=== PATIENT | male | born 1975 | race Caucasian/White ===

== ENCOUNTER → 2016-05-04 | Day surgery (SDC) | payer OTHER ==
[2016-05-03 13:40] VITALS: BMI 30.7
[~2016-05-04] MED LIST: ACETAMINOPHEN 1000 MG/100 ML VIAL (NON FORMULARY) IVPB ONE; ACETAMINOPHEN INJECTION 100 ML IVPB ONE; BACITRACIN 30 GM TUBE TOPICAL OINTMENT ONE; DEXAMETHASONE SOD PHOSPHATE 4 MG/1 ML VIAL ONE; DEXTROSE 5%-0.45% SALINE 1,000 ML IV SCH; KETOROLAC TROMETHAMINE 30 MG/1 ML VIAL ONE; LACTATED RINGERS SOLUTION 1,000 ML IV SCH; LIDOCAINE HCL 1%, 10 MG/ML (20ML VIAL) IJ ONE; LIDOCAINE HCL 1%, 10 MG/ML (20ML VIAL) ONE; LIDOCAINE HCL/PF 2% SDV 5ML VIAL ONE; MIDAZOLAM HCL 2 MG/2 ML SINGLE DOSE VIAL ONE; MINERAL OIL/PETROLATUM,WHITE 3.5 GM TUBE ONE; ONDANSETRON 4 MG/2 ML VIAL IVPUSH PRN; ONDANSETRON 4 MG/2 ML VIAL ONE; PROPOFOL 20 ML ONE; SUCCINYLCHOLINE CHLORIDE 200 MG/10 ML VIAL ONE; ceFAZolin SODIUM 1 GM VIAL IVPB ONE; ceFAZolin SODIUM 1 GM VIAL ONE; traMADol HCL 50 MG TABLET ONE
--- NOTE | 2016-05-04 09:20 | OP ---
Operative Note - Note: Operative Date: 05/04/16 Pre-Operative Diagnosis: left spermatocele Operation: left spermatocelectomy Findings: left spermatocele Post-Operative Diagnosis: Same as Pre-op Surgeon: Evgeny Almaraz Anesthesia: General Specimens Removed: spermatocele sac Estimated Blood Loss (mls): 2 Operative Report Dictated: Yes
--- NOTE | 2016-05-04 10:45 | OP ---
DATE OF OPERATION: PREOPERATIVE DIAGNOSIS: Left spermatocele. POSTOPERATIVE DIAGNOSIS: Left spermatocele. PROCEDURE: Left spermatocelectomy. SURGEON: Alyssa Joy MD INDICATIONS: The patient is a 40-year-old male with a symptomatic 3-cm left spermatocele who elected to undergo spermatocelectomy. Understood the risks of bleeding, infection, recurrence of spermatocele, potential for persistent pain because the pain may not be due to the spermatocele, risk of recurrence, potential injury to the epididymitis, and potential need for additional procedures. DESCRIPTION OF PROCEDURE: After informed consent was obtained, the patient was taken to the OR and placed supine on the operating room table. After cardiac monitoring was administered, general anesthesia was established. The penis and scrotum were prepped and draped in a standard sterile fashion. A 3-cm left spermatocele was palpable below the scrotal skin. An approximately 2-cm incision was created overlying the spermatocele with a 15 blade. The Dartos muscle was incised and then tunica vaginalis was incised. At this point, the spermatocele was visualized. It was dissected free from the epididymis. The came to a connection with the epididymis at which point it was amputated and ligated and sutured with a 3-0 Vicryl tie. The spermatocele sac was then sent to Pathology for analysis. No other spermatocele was noted. The testicle was placed in its normal anatomic position. The Dartos and tunica vaginalis were closed with an interrupted 3-0 chromic suture, and the skin was closed with interrupted 3-0 chromic suture as well. Dry sterile dressing and scrotal support was then placed. The patient was awoken from anesthesia and transferred to the recovery room in stable condition. There were no complications. Estimated blood loss was minimal. ALYSSA JOY M.D. [id number]
[2016-05-04 11:45] VITALS: TEMP 98.4
[2016-05-04 13:26] VITALS: BP 127/66; PULSE 87
== END | disposition home or self-care (01) ==
LOC: JASU-SURG 06:33
PROVIDERS: ATTEND Urology
PROC: 0VBK0ZZ Excision of Left Epididymis, Open Approach (ICD-10-PCS; principal; 2016-05-04 08:00)
DX: N43.40 Spermatocele of epididymis, unspecified (principal)
CPT/HCPCS: 88304-TC; 94760

== ENCOUNTER 2017-09-19 17:33 | Emergency (ER) | payer OTHER ==
[2017-09-19 17:43] VITALS: BP 159/93; PULSE 96; TEMP 98; BMI 29.2
--- NOTE | 2017-09-19 17:43 | PDOC ---
Rapid Medical Evaluation Chief Complaint: Lightheaded Time Seen by Provider: 09/19/17 17:41 Medical Evaluation: Allergies Allergy/AdvReac Type Severity Reaction Status Date / Time oxycodone Allergy Intermediate Itching Verified 09/19/17 17:38 tree nut Allergy Mild Itching Verified 09/19/17 17:38 APPLES/PEARS Allergy Uncoded 09/19/17 17:38 I have performed a brief in-person evaluation of this patient. The patient presents with a chief complaint of: weak and dizzy after work today Pertinent physical exam findings: none I have ordered the following: labs, EKG The patient will proceed to the ED for further evaluation. Discharge Disposition - Diagnosis Dizziness - Referrals - Patient Instructions - Post Discharge Activity
[2017-09-19 18:18] LABS: BASO % 0.5 % (0-2.0); EOS % 4.6 % (0-4.5); HEMATOCRIT 45.3 % (35.4-49); HEMOGLOBIN 15.7 GM/dL (11.7-16.9); LYMPH % 29.7 % (8-40); MCH 31.1 pg (25.7-33.7); MCHC 34.7 g/dl (32.0-35.9); MEAN CELL VOLUME 89.5 fl (80-96); MEAN PLT VOLUME 9.2 fl (7.5-11.1); MONO % 9.4 % (3.8-10.2); NEUT % 55.8 % (42.8-82.8); PLATELET COUNT 214 K/MM3 (134-434); RBC 5.06 M/mm3 (4.00-5.60)
[2017-09-19 18:54] LABS: ANION GAP 7 (8-16); BLOOD UREA NITROGEN 19 mg/dL (7-18); CALCIUM 8.5 mg/dL (8.5-10.1); CHLORIDE 105 mmol/L (98-107); CO2 27 mmol/L (21-32); CREATININE 1.3 mg/dL (0.7-1.3); GLUCOSE,RANDOM 114 mg/dL (74-106); POTASSIUM 3.7 mmol/L (3.5-5.1); SGOT/AST 21 U/L (15-37); SGPT/ALT 36 U/L (12-78); SODIUM 139 mmol/L (136-145)
[2017-09-19 18:59] LABS: ALK PHOS 66 U/L (45-117); BILIRUBIN,TOTAL 0.6 mg/dL (0.2-1.0); TOT PROT 7.6 g/dl (6.4-8.2)
--- NOTE | 2017-09-19 21:27 | PDOC ---
History of Present Illness - General History Source: Patient, Old Records Exam Limitations: No Limitations (The patient is a 41 year old male with no significant past medical history who presents to the emergency department with lightheadedness today. The patient states that he was lying in bed when his symptoms began. He reports that he felt like he had to pass out while lying down. He reports that he drank a few cups of water and he symptoms have mostly subsided. He reports associated nausea and dry mouth, He denies chest pain, shortness of breath, sick contacts. He reports that he does not drink, smoke, or do drugs. ) - History of Present Illness Initial Comments: 09/19/17 21:34 The patient is a 41 year old male with no significant past medical history who presents to the emergency department with lightheadedness today. The patient states that he was lying in bed when his symptoms began. He reports that he felt like he had to pass out while lying down. He reports that he drank a few cups of water and he symptoms have mostly subsided. He reports associated nausea and dry mouth, He denies chest pain, shortness of breath, sick contacts. He reports that he does not drink, smoke, or do drugs. <Sachin Earl - Last Filed: 09/19/17 21:34> - General History Source: Patient <VincentPascual hung - Last Filed: 09/19/17 21:38> - General Chief Complaint: Lightheaded Stated Complaint: FATIGUE Time Seen by Provider: 09/19/17 17:41 Past History <Sachin Earl - Last Filed: 09/19/17 21:34> - Past Medical History Anemia: No Asthma: No Cancer: No Cardiac Disorders: No CVA: No COPD: No CHF: No Dementia: No Diabetes: No GI Disorders: No Disorders: No HTN: Yes (recent high b/p) Hypercholesterolemia: No Liver Disease: No Seizures: No Thyroid Disease: No - Immunization History Td Vaccination: Yes Immunization Up to Date: Yes - Suicide/Smoking/Psychosocial Hx Smoking Status: No Smoking History: Never smoked Have you smoked in the past 12 months: No Number of Cigarettes Smoked Daily: 0 Information on smoking cessation initiated: No Hx Alcohol Use: No Drug/Substance Use Hx: No Substance Use Type: None <Pascual Farah - Last Filed: 09/19/17 21:38> - Past Medical History Allergies/Adverse Reactions: Allergies Allergy/AdvReac Type Severity Reaction Status Date / Time oxycodone Allergy Intermediate Itching Verified 09/19/17 17:38 tree nut Allergy Mild Itching Verified 09/19/17 17:38 APPLES/PEARS Allergy Uncoded 09/19/17 17:38 Home Medications: Ambulatory Orders Clindamycin HCl 300 mg PO TID #15 capsule 09/16/17 Ketorolac Tromethamine [Toradol] 10 mg PO TID PRN #20 tablet 09/16/17 Review of Systems - Review of Systems Able to Perform ROS?: Yes Comments:: 09/19/17 21:34 CONSTITUTIONAL: Absent: fever, no chills, no fatigue EYES: Absent: visual changes ENT: (+) Dry mucus membranes Absent: ear pain, no sore throat CARDIOVASCULAR: Absent: chest pain, no palpitations RESPIRATORY: Absent: cough, no SOB GI: Absent: abdominal pain, no nausea, no vomiting, no constipation, no diarrhea GENITOURINARY: Absent: dysuria, no frequency, no hematuria MUSCULOSKELETAL: Absent: back pain, no arthralgia, no myalgia SKIN: Absent: rash NEURO: (+) Lightheadedness, nausea. <Sachin Earl - Last Filed: 09/19/17 21:34> *Physical Exam - Vital Signs Last Vital Signs Temp Pulse Resp BP Pulse Ox 98.0 F 96 H 18 159/93 100 09/19/17 17:40 09/19/17 17:40 09/19/17 17:40 09/19/17 17:40 09/19/17 17:40 - Physical Exam Comments: 09/19/17 21:34 GENERAL: Well-appearing, well-nourished. No apparent distress. HEENT: Normocephalic, atraumatic. PERRL, EOM intact. CARDIOVASCULAR: Normal S1, S2. Regular rate and rhythm. PULMONARY: Clear to auscultation bilaterally. ABDOMEN: Soft, non-distended, non-tender. EXTREMITIES: Normal ROM in all four extremities. No gross deformities. SKIN: Warm, dry. No rash NEUROLOGICAL: No focal neurological deficits. <Sachin Earl - Last Filed: 09/19/17 21:34> - Vital Signs Last Vital Signs Temp Pulse Resp BP Pulse Ox 98.0 F 96 H 18 159/93 100 09/19/17 17:40 09/19/17 17:40 09/19/17 17:40 09/19/17 17:40 09/19/17 17:40 <Pascual Farah - Last Filed: 09/19/17 21:38> ED Treatment Course - LABORATORY CBC & Chemistry Diagram: 09/19/17 18:19 09/19/17 18:19 - ADDITIONAL ORDERS Additional order review: Laboratory Results 09/19/17 18:19 Sodium 139 Potassium 3.7 Chloride 105 Carbon Dioxide 27 Anion Gap 7 L BUN 19 H Creatinine 1.3 D Creat Clearance w eGFR > 60 Random Glucose 114 H D Calcium 8.5 Total Bilirubin 0.6 D AST 21 D ALT 36 Alkaline Phosphatase 66 Creatine Kinase 165 Creatine Kinase Index 0.9 CK-MB (CK-2) 1.64 Troponin I < 0.02 Total Protein 7.6 Albumin 4.0 09/19/17 18:19 RBC 5.06 MCV 89.5 MCHC 34.7 RDW 13.0 MPV 9.2 Neutrophils % 55.8 Lymphocytes % 29.7 Monocytes % 9.4 Eosinophils % 4.6 H Basophils % 0.5 <Sachin Earl - Last Filed: 09/19/17 21:34> - LABORATORY CBC & Chemistry Diagram: 09/19/17 18:19 09/19/17 18:19 - ADDITIONAL ORDERS Additional order review: Laboratory Results 09/19/17 18:19 Sodium 139 Potassium 3.7 Chloride 105 Carbon Dioxide 27 Anion Gap 7 L BUN 19 H Creatinine 1.3 D Creat Clearance w eGFR > 60 Random Glucose 114 H D Calcium 8.5 Total Bilirubin 0.6 D AST 21 D ALT 36 Alkaline Phosphatase 66 Creatine Kinase 165 Creatine Kinase Index 0.9 CK-MB (CK-2) 1.64 Troponin I < 0.02 Total Protein 7.6 Albumin 4.0 09/19/17 18:19 RBC 5.06 MCV 89.5 MCHC 34.7 RDW 13.0 MPV 9.2 Neutrophils % 55.8 Lymphocytes % 29.7 Monocytes % 9.4 Eosinophils % 4.6 H Basophils % 0.5 <Pascual Farah - Last Filed: 09/19/17 21:38> Medical Decision Making - Medical Decision Making 09/19/17 21:30 Dr. Farah: The scribe's documentation has been prepared under my direction and personally reviewed by me in its entirery. I confirm that the note above accurately reflects all work, treatment, procedures, and medical decision making performed by me. Patient's feels better after drinking in the department. Denies return of symptoms. Pt advised to follow up with with his pcp by next week for re- evaluation. <Pascual Farah - Last Filed: 09/19/17 21:38> *DC/Admit/Observation/Transfer - Attestations Scribe Attestion: 09/19/17 21:34 Documentation prepared by Sachin Earl, acting as center medical and lab director for Pascual Farah DO. <Sachin Earl - Last Filed: 09/19/17 21:34> - Discharge Dispostion Decision to Admit order: No <Pascual Farah - Last Filed: 09/19/17 21:38> Diagnosis at time of Disposition: Dizziness, Light headedness - Discharge Dispostion Disposition: HOME Condition at time of disposition: Stable - Referrals Referrals: Lisandro Alejandre [Primary Care Provider] - - Patient Instructions Printed Discharge Instructions: DI for Dizziness-Nonvertigo Additional Instructions: stay well hydrated throughout the summer. eat well and rest. Please follow up with your primary care doctor for a re-evaluation by Sunday of nest week. - Post Discharge Activity
--- NOTE | 2017-09-20 11:54 | EKG ---
Test Reason : Blood Pressure : / mmHG Vent. Rate : 083 BPM Atrial Rate : 083 BPM P-R Int : 156 ms QRS Dur : 096 ms QT Int : 380 ms P-R-T Axes : 053 028 039 degrees QTc Int : 446 ms NORMAL SINUS RHYTHM NORMAL ECG WHEN COMPARED WITH ECG OF 18-JUL-2013 19:53, NO SIGNIFICANT CHANGE WAS FOUND Confirmed by ARABELLA COHEN MD ([id number]) on 09/20/2017 11:54:05 AM Referred By: Confirmed By:ARABELLA COHEN MD
== END 2017-09-19 21:40 | disposition home or self-care (01) ==
LOC: JER 17:33
DX: R42 Dizziness and giddiness (principal); Z88.8 Allergy status to other drugs, medicaments and biological substances; Z91.018 Allergy to other foods
CPT/HCPCS: 36415; 80053; 82550; 82553; 84484; 85025; 93005; 93010; 99282-25

== ENCOUNTER 2017-12-14 12:55 | Emergency (ER) | payer OTHER ==
[2017-12-14 13:02] VITALS: BP 139/86; PULSE 89; TEMP 98.5; BMI 31.5
[2017-12-14] MEDS ORDERED: KETOROLAC TROMETHAMINE 30 MG/1 ML VIAL IM ONE (13:16)
[2017-12-14] MEDS ORDERED: KETOROLAC TROMETHAMINE 30 MG/1 ML VIAL ONE (13:24)
--- NOTE | 2017-12-14 13:39 | PDOC ---
History of Present Illness - General Chief Complaint: Pain Stated Complaint: LEFT BACK PAIN Time Seen by Provider: 12/14/17 12:57 - History of Present Illness Initial Comments: 12/14/17 13:34 42 M with no PMH presents to ED with L lower back pain x 4 days. Pt states that he initially injured his back in high school doing deadlifts. Since then, he occasionally gets lower back pain a few times a year. 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 He denies any new injuries but states that he has been having progressively worsening pain over the past 4 days. The pain is in his L lower back and radiates down his leg. It is worse with bending and lifting his leg. Pt denies any weakness/numbness in his leg. Denies saddle anesthesia or incontinence. Denies F/C. Past History - Past Medical History Allergies/Adverse Reactions: Allergies Allergy/AdvReac Type Severity Reaction Status Date / Time oxycodone Allergy Intermediate Itching Verified 12/14/17 12:56 tree nut Allergy Mild Itching Verified 12/14/17 12:56 APPLES/PEARS Allergy Mild Itching Uncoded 12/14/17 12:56 Home Medications: Ambulatory Orders Naproxen 500 mg PO BID #14 tablet 12/14/17 Anemia: No Asthma: No Cancer: No Cardiac Disorders: No CVA: No COPD: No CHF: No Dementia: No Diabetes: No GI Disorders: No Disorders: No HTN: Yes (recent high b/p) Hypercholesterolemia: No Liver Disease: No Seizures: No Thyroid Disease: No - Immunization History Td Vaccination: Yes Immunization Up to Date: Yes - Suicide/Smoking/Psychosocial Hx Smoking Status: No Smoking History: Never smoked Have you smoked in the past 12 months: No Number of Cigarettes Smoked Daily: 0 Information on smoking cessation initiated: No Hx Alcohol Use: No Drug/Substance Use Hx: No Substance Use Type: None Review of Systems - Review of Systems Comments:: 12/14/17 13:35 "GENERAL/CONSTITUTIONAL: No fever or chills. No weakness. HEAD, EYES, EARS, NOSE AND THROAT: No change in vision. No ear pain or discharge. No sore throat. CARDIOVASCULAR: No chest pain or shortness of breath. RESPIRATORY: No cough, wheezing, or hemoptysis. GASTROINTESTINAL: No nausea, vomiting, diarrhea or constipation. GENITOURINARY: No dysuria, frequency, or change in urination. MUSCULOSKELETAL: + L lower back pain SKIN: No rash NEUROLOGIC: No headache, vertigo, loss of consciousness, or change in strength/ sensation. ENDOCRINE: No increased thirst. No abnormal weight change. HEMATOLOGIC/LYMPHATIC: No anemia, easy bleeding, or history of blood clots. ALLERGIC/IMMUNOLOGIC: No hives or skin allergy. " *Physical Exam - Vital Signs Last Vital Signs Temp Pulse Resp BP Pulse Ox 98.5 F 89 16 139/86 100 12/14/17 12:55 12/14/17 12:55 12/14/17 12:55 12/14/17 12:55 12/14/17 12:55 - Physical Exam Comments: 12/14/17 13:36 "GENERAL: Awake, alert, and fully oriented, in no acute distress. HEAD: No signs of trauma EYES: PERRLA, EOMI, sclera anicteric, conjunctiva clear ENT: Auricles normal inspection, hearing grossly normal, nares patent, oropharynx clear without exudates. Moist mucosa NECK: Nontender, no stepoffs, Normal ROM, supple, no lymphadenopathy, JVD, or masses LUNGS: Breath sounds equal, clear to auscultation bilaterally. No wheezes, and no crackles HEART: Regular rate and rhythm, normal S1 and S2, no murmurs, rubs or gallops ABDOMEN: Soft, nontender, normoactive bowel sounds. No guarding, no rebound. No masses EXTREMITIES: Normal range of motion, no edema. No clubbing or cyanosis. No cords, erythema, or tenderness NEUROLOGICAL: Cranial nerves II through XII intact. 5/5 strength and sensation in all extremities, Normal speech, normal gait, normal cerebellar function SKIN: Warm, Dry, normal turgor, no rashes or lesions noted. BACK: + L paraspinal lumbar TTP, + L sided straight leg raise ED Treatment Course - Medications Given in the ED: ED Medications Discontinued Medications Generic Name Dose Route Start Last Admin Trade Name Freq PRN Reason Stop Dose Admin Ketorolac Tromethamine 30 mg 12/14/17 13:16 12/14/17 13:28 Toradol Injection - IM 12/14/17 13:17 30 mg ONCE ONE Administration Medical Decision Making - Medical Decision Making 12/14/17 13:36 42 M with L lower back pain radiating to L leg. Likely sciatic nerve pain. Pt with no neuro deficits. No evidence of cord compression/cauda equina. - Toradol - F/u ortho Pt is well appearing, with normal vitals. Clinically stable for DC at this time. I discussed the physical exam findings, ancillary test results and final diagnoses with the patient. I answered all of the patient's questions. The patient was satisfied with the care received and felt comfortable with the discharge plan and treatment plan. The patient agrees to follow up with the primary care physician within 24-72 hours. *DC/Admit/Observation/Transfer Diagnosis at time of Disposition: Lower back pain - Discharge Dispostion Disposition: HOME Condition at time of disposition: Stable - Referrals Referrals: Wu Sweet MD [Staff Physician] - - Patient Instructions Printed Discharge Instructions: DI for Sciatica Additional Instructions: Your lower back pain is likely due to your sciatic nerve. It could also be a herniated disc. Follow up with an orthopedic surgeon for further evaluation. You will likely need a MRI. Call the number provided to make an appointment within 1 week. Take one naproxen every 12 hours for pain. If you experience worsening pain, weakness or numbness in your legs, difficulty controlling your bowel or bladder, or any other concerning symptoms, return to the ER immediately. - Post Discharge Activity - Attestations Physician Attestion: 12/14/17 13:39 I, Dr. Derek Carroll MD, attest that this document has been prepared under my direction and personally reviewed by me in its entirety. I further attest, that it accurately reflects all work, treatment, procedures and medical decision -making performed by me.
== END 2017-12-14 14:03 | disposition home or self-care (01) ==
LOC: FER 12:55
PROC: 3E0233Z Introduction of Anti-inflammatory into Muscle, Percutaneous Approach (ICD-10-PCS; principal; 2017-12-14)
DX: M54.5 Low back pain (principal); I10 Essential (primary) hypertension
CPT/HCPCS: 96372; 99282-25

== ENCOUNTER 2018-04-06 22:36 | Emergency (ER) | payer OTHER ==
[2018-04-06 22:51] VITALS: BP 144/100; PULSE 90; TEMP 98.1; BMI 31.6
--- NOTE | 2018-04-06 23:01 | PDOC ---
History of Present Illness - General Chief Complaint: Pain Stated Complaint: ARM PAIN/NUMBNESS Time Seen by Provider: 04/06/18 22:44 - History of Present Illness Initial Comments: This 42-year-old man with no significant past medical history presents with a several day history of numbness of lateral aspect of the left forearm. He denies paresthesias/pain/weakness of the left arm. No history of recent trauma to the left upper extremity. He has a history of rotator cuff injury of the left shoulder 2 years ago; this resolved with conservative treatment. He denies any history of neck pain/cervical disc issues. 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 He does not recall any recent increase in strenuous activity or direct trauma to the left arm. No previous history of peripheral neuropathy or nerve compression syndromes . He states that his blood pressure has been elevated intermittently, typically in doctor's offices or preoperatively. He has never been treated for hypertension. Cardiac risk factors: Family history of coronary artery disease, otherwise no risk factors Past History - Past Medical History Allergies/Adverse Reactions: Allergies Allergy/AdvReac Type Severity Reaction Status Date / Time oxycodone Allergy Intermediate Itching Verified 12/14/17 12:56 tree nut Allergy Mild Itching Verified 12/14/17 12:56 APPLES/PEARS Allergy Mild Itching Uncoded 12/14/17 12:56 Home Medications: Ambulatory Orders NK [No Known Home Medication] 04/06/18 Anemia: No Asthma: No Cancer: No Cardiac Disorders: No CVA: No COPD: No CHF: No Dementia: No Diabetes: No GI Disorders: No Disorders: No HTN: Yes (recent high b/p) Hypercholesterolemia: No Liver Disease: No Seizures: No Thyroid Disease: No - Immunization History Td Vaccination: Yes Immunization Up to Date: Yes - Suicide/Smoking/Psychosocial Hx Smoking Status: No Smoking History: Never smoked Have you smoked in the past 12 months: No Number of Cigarettes Smoked Daily: 0 Hx Alcohol Use: No Drug/Substance Use Hx: No Substance Use Type: None Review of Systems - Review of Systems Able to Perform ROS?: Yes Comments:: 12 point review of systems is negative except for what is noted in the history of present illness *Physical Exam - Vital Signs Last Vital Signs Temp Pulse Resp BP Pulse Ox 98.1 F 90 18 144/100 98 04/06/18 22:37 04/06/18 22:37 04/06/18 22:37 04/06/18 22:37 04/06/18 22:37 - Physical Exam Comments: GENERAL: Adult male, alert and oriented 3, no acute distress HEAD: Normal with no signs of trauma. EYES: PERRLA, EOMI, sclera anicteric, conjunctiva clear. ENT: Ears normal, nares patent, oropharynx clear without exudates. Moist mucous membranes. NECK: Normal range of motion, supple without lymphadenopathy, JVD, or masses. LUNGS: Breath sounds equal, clear to auscultation bilaterally. No wheezes, and no crackles. HEART:Regular rate and rhythm, normal S1 and S2 without murmur, rub or gallop. ABDOMEN:.normal bowel sounds No guarding,tenderness or rebound.No masses No distention. EXTREMITIES: Left upper extremity mild tenderness to palpation in the antecubital fossa; decreased light touch sensation lateral aspect of the forearm No obvious weakness of elbow flexion/extension; no weakness of wrist/hand flexion or extension Radial pulse strongly palpable at wrist; distal neurovascular functioning is intact Remainder of the extremity exam is normal NEUROLOGICAL: Cranial nerves II through XII grossly intact. Normal speech. No focal neurological deficits. MUSCULOSKELETAL: Back non-tender to palpation, no CVA tenderness SKIN: Warm, Dry, normal turgor, no rashes or lesions noted. Twelve-lead electrocardiogram is performed and interpreted by me: Normal sinus rhythm at 82 bpm; axis, intervals and wave forms are all normal. No evidence of acute ST or T-wave abnormalities. No evidence of acute cardiac arrhythmia Moderate Sedation - Procedure Monitoring Vital Signs: Procedure Monitoring Vital Signs Temperature 98.1 F 04/06/18 22:37 Pulse Rate 90 04/06/18 22:37 Respiratory Rate 18 04/06/18 22:37 Blood Pressure 144/100 04/06/18 22:37 O2 Sat by Pulse Oximetry (%) 98 04/06/18 22:37 Medical Decision Making - Medical Decision Making This 42-year-old man presents with a few day history of numbness of an area of the left forearm without paresthesias/pain or weakness. No other symptoms present. Although the patient has no known trauma to the left arm, he does have risk factors for overuse/strain because of daily lifting of heavy objects during his work. Exam as noted. There is a limited area of light touch sensation decrease in the lateral aspect of the proximal left forearm. There is no obvious weakness of elbow flexion/extension. He does have an area of tenderness of the antecubital fossa; he also states that he has mild pain in the medial portion of the left shoulder with full overhead flexion of the arm. Patient has a normal 12-lead electrocardiogram and no associated symptoms suggestive of myocardial ischemia. Patient has one risk factor for coronary artery disease (family history). Extremely unlikely that isolated forearm numbness is caused by myocardial ischemia. Patient is at risk for localized strain/edema that may be causing a localized compression neuropathy. No evidence for more extensive neuropathy at this point. However, patient needs full workup if symptoms persist. Patient has been strongly advised follow-up with his hand surgeon (he has a history of right index finger procedure). Meanwhile, he should refrain from heavy lifting/ strenuous exercise involving the left upper extremity. Also, nonsteroidal anti- inflammatory such as ibuprofen/naproxen can be used as needed. *DC/Admit/Observation/Transfer Diagnosis at time of Disposition: Peripheral sensory neuropathy - Discharge Dispostion Disposition: HOME Condition at time of disposition: Stable - Referrals Referrals: Lisandro Alejandre [Primary Care Provider] - - Patient Instructions Printed Discharge Instructions: DI for Peripheral Neuropathy Additional Instructions: Avoid strenuous activity involving left arm for the next several days Ibuprofen/naproxen/acetaminophen as needed; take ibuprofen/naproxen with food Kirt wrap to elbow and forearm during the day as needed Follow-up with your hand surgeon if you have persistent numbness or experience pain/weakness Follow-up with within the next 2 weeks - Post Discharge Activity
--- NOTE | 2018-04-07 17:08 | EKG ---
Test Reason : Blood Pressure : / mmHG Vent. Rate : 082 BPM Atrial Rate : 082 BPM P-R Int : 164 ms QRS Dur : 088 ms QT Int : 374 ms P-R-T Axes : 046 023 018 degrees QTc Int : 436 ms NORMAL SINUS RHYTHM NORMAL ECG WHEN COMPARED WITH ECG OF 19-SEP-2017 18:10, NO SIGNIFICANT CHANGE WAS FOUND Confirmed by MD LORAINE, TIMOTHY ([id number]) on 04/07/2018 5:06:42 PM Referred By: DENY STATON Confirmed By:TIMOTHY BARON MD
== END 2018-04-06 23:59 | disposition home or self-care (01) ==
LOC: FER 22:36
DX: G60.8 Other hereditary and idiopathic neuropathies (principal)
CPT/HCPCS: 93005; 99282-25

== ENCOUNTER 2018-04-26 09:45 | Emergency (ER) | payer OTHER ==
[2018-04-26 09:54] VITALS: BP 140/95; PULSE 86; TEMP 97.9; BMI 31.5
--- NOTE | 2018-04-26 10:38 | PDOC ---
History of Present Illness - General Chief Complaint: Head/Neck problem Stated Complaint: LEFT ARM PAIN NUMBNESS, LIGHTHEADED Time Seen by Provider: 04/26/18 09:57 - History of Present Illness Initial Comments: 04/26/18 10:32 42M with no PMH presents to ED with lightheadedness and L arm tightness. Pt states that the L arm has been bothering him intermittently for the past month. Was seen here earlier this month for same issue and referred to his orthopedic surgeon for further evaluation, but he never followed up. Pt notes that he had surgery on his R hand prior to onset of the issues with his L arm and admits that he has been using his L arm more because his R arm was immobilized. Denies any numbness or weakness in the arm. Pt states that for the past 2 days, he has been feeling lightheaded intermittently. 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 Denies any CP/SOB. Denies syncopal episode. Denies PETER. Denies room- spinning. Past History - Past Medical History Allergies/Adverse Reactions: Allergies Allergy/AdvReac Type Severity Reaction Status Date / Time oxycodone Allergy Intermediate Itching Verified 04/26/18 09:46 tree nut Allergy Mild Itching Verified 04/26/18 09:46 APPLES/PEARS Allergy Mild Itching Uncoded 04/26/18 09:46 Home Medications: Ambulatory Orders NK [No Known Home Medication] 04/06/18 Anemia: No Asthma: No Cancer: No Cardiac Disorders: No CVA: No COPD: No CHF: No Dementia: No Diabetes: No GI Disorders: No Disorders: No HTN: Yes (recent high b/p) Hypercholesterolemia: No Liver Disease: No Seizures: No Thyroid Disease: No Other medical history: ROTATOR CUFF INJURY - Immunization History Td Vaccination: Yes Immunization Up to Date: Yes - Suicide/Smoking/Psychosocial Hx Smoking Status: No Smoking History: Never smoked Have you smoked in the past 12 months: No Number of Cigarettes Smoked Daily: 0 Hx Alcohol Use: No Drug/Substance Use Hx: No Substance Use Type: None Review of Systems - Review of Systems Comments:: 04/26/18 10:35 GENERAL/CONSTITUTIONAL: No fever or chills. No weakness. HEAD, EYES, EARS, NOSE AND THROAT: No change in vision. No ear pain or discharge. No sore throat. CARDIOVASCULAR: + lightheadedness, No chest pain, no shortness of breath, no loss of consciousness RESPIRATORY: No cough, wheezing, or hemoptysis. GASTROINTESTINAL: No nausea, vomiting, diarrhea or constipation. GENITOURINARY: No dysuria, frequency, or change in urination. MUSCULOSKELETAL: + L arm tightness, No joint or muscle swelling or pain. No neck or back pain. SKIN: No rash NEUROLOGIC: No vertigo, no change in strength/sensation. ENDOCRINE: No increased thirst. No abnormal weight change. HEMATOLOGIC/LYMPHATIC: No anemia, easy bleeding, or history of blood clots. ALLERGIC/IMMUNOLOGIC: No hives or skin allergy. *Physical Exam - Vital Signs Last Vital Signs Temp Pulse Resp BP Pulse Ox 97.9 F 86 16 140/95 98 04/26/18 09:46 04/26/18 09:46 04/26/18 09:46 04/26/18 09:46 04/26/18 09:46 - Physical Exam Comments: 04/26/18 10:37 GENERAL: Awake, alert, and fully oriented, in no acute distress. HEAD: No signs of trauma EYES: PERRLA, EOMI, sclera anicteric, conjunctiva clear ENT: Auricles normal inspection, hearing grossly normal, nares patent, oropharynx clear without exudates. Moist mucosa NECK: Nontender, no stepoffs, Normal ROM, supple, no lymphadenopathy, JVD, or masses LUNGS: Breath sounds equal, clear to auscultation bilaterally. No wheezes, and no crackles HEART: Regular rate and rhythm, normal S1 and S2, no murmurs, rubs or gallops ABDOMEN: Soft, nontender, normoactive bowel sounds. No guarding, no rebound. No masses EXTREMITIES: Normal range of motion, no edema. No clubbing or cyanosis. No cords, erythema, or tenderness NEUROLOGICAL: Cranial nerves II through XII intact. 5/5 strength and sensation in all extremities, Normal speech, normal gait, normal cerebellar function SKIN: Warm, Dry, normal turgor, no rashes or lesions noted. Moderate Sedation - Procedure Monitoring Vital Signs: Procedure Monitoring Vital Signs Temperature 97.9 F 04/26/18 09:46 Pulse Rate 86 04/26/18 09:46 Respiratory Rate 16 04/26/18 09:46 Blood Pressure 140/95 04/26/18 09:46 O2 Sat by Pulse Oximetry (%) 98 04/26/18 09:46 Heart Score/ECG Review - History History: Slightly suspicious - Electrocardiogram EKG: Normal - Age Age: </= 45 - Risk Factors Risk Factors Heart Score: Yes Positive family hx of cardiac disease Based on the list above the patient has:: 1-2 risk factors - Troponin Troponin: </= normal limit - Score Heart Score - Total: 1 - ECG Impressions Comment:: 04/26/18 11:33 NSR, no AMANDA/STDs, no TWIs, axis wnl, intervals wnl, rate 62 ED Treatment Course - LABORATORY CBC & Chemistry Diagram: 04/26/18 10:40 04/26/18 10:40 Medical Decision Making - Medical Decision Making 04/26/18 10:37 42 M with intermittent lightheadedness x 2 days and L arm tightness x 1 month. Exam completely benign. Normal strength/sensation in both extremities, compartments soft. Likely mild tendinitis 2/2 overuse after pt's R hand surgery. Will evaluate for ACS given intermittent lightheadedness, though pt with few cardiac risk factors. - Labs, trop - EKG 04/26/18 11:33 Labs wnl, trop negative Pt is well appearing, with normal vitals. Clinically stable for DC at this time. I discussed the physical exam findings, ancillary test results and final diagnoses with the patient. I answered all of the patient's questions. The patient was satisfied with the care received and felt comfortable with the discharge plan and treatment plan. The patient agrees to follow up with the primary care physician within 24-72 hours. *DC/Admit/Observation/Transfer Diagnosis at time of Disposition: Light headedness, Arm pain, left, Tendinitis - Discharge Dispostion Disposition: HOME Condition at time of disposition: Good - Referrals Referrals: Lisandro Alejandre [Primary Care Provider] - Roger Zuñiga MD [Staff Physician] - - Patient Instructions Printed Discharge Instructions: DI for Dizziness-Nonvertigo Additional Instructions: Your bloodwork and EKG were normal today. However, given your family history, you should still see a upper leather cutter for further evaluation. Call the number provided to make an appointment. Follow up with your orthopedic surgeon for further evaluation of your L arm tightness. If you experience chest pain, shortness of breath, persistent lightheadedness, or any other concerning symptoms, return to the ER immediately. - Post Discharge Activity - Attestations Physician Attestion: 04/26/18 11:35 I, Dr. Derek Carroll MD, attest that this document has been prepared under my direction and personally reviewed by me in its entirety. I further attest, that it accurately reflects all work, treatment, procedures and medical decision -making performed by me.
[2018-04-26 10:51] LABS: BASO % 0.9 % (0-2.0); EOS % 1.7 % (0-4.5); HEMATOCRIT 48.4 % (35.4-49); HEMOGLOBIN 15.9 GM/dl (11.7-16.9); LYMPH % 23.4 % (8-40); MCH 30.1 pg (25.7-33.7); MCHC 32.9 g/dl (32.0-35.9); MEAN CELL VOLUME 91.5 fl (80-96); MEAN PLT VOLUME 9.2 fl (7.5-11.1); MONO % 8.4 % (3.8-10.2); NEUT % 65.6 % (42.8-82.8); PLATELET COUNT 215 K/MM3 (134-434); RBC 5.29 M/mm3 (4.00-5.60); RDW 12.3 % (11.9-15.9); WHITE BLOOD COUNT 5.6 K/mm3 (4.0-10.8)
[2018-04-26 11:05] LABS: ALBUMIN 4.2 g/dl (3.4-5.0); ALK PHOS 55 U/L (45-117); ANION GAP 8 MMOL/L (8-16); BILIRUBIN,TOTAL 0.6 mg/dl (0.2-1); BLOOD UREA NITROGEN 14 mg/dl (7-18); CALCIUM 9.2 mg/dl (8.5-10); CHLORIDE 106 mmol/L (98-107); CO2 23 mmol/L (21-32); CREATININE 1.1 mg/dl (0.55-1.3); GLUCOSE,RANDOM 91 mg/dl (74-106); POTASSIUM 4.4 mmol/L (3.5-5.1); SGOT/AST 25 U/L (15-37); SGPT/ALT 25 U/L (13-61); SODIUM 137 mmol/L (136-145); TOT PROT 7.5 g/dl (6.4-8.2)
--- NOTE | 2018-04-26 15:51 | EKG ---
Test Reason : Blood Pressure : / mmHG Vent. Rate : 062 BPM Atrial Rate : 062 BPM P-R Int : 172 ms QRS Dur : 082 ms QT Int : 402 ms P-R-T Axes : 044 017 015 degrees QTc Int : 408 ms POOR DATA QUALITY, INTERPRETATION MAY BE ADVERSELY AFFECTED NORMAL SINUS RHYTHM NORMAL ECG WHEN COMPARED WITH ECG OF 06-APR-2018 22:57, NO SIGNIFICANT CHANGE WAS FOUND Confirmed by LORRAINE ARTEAGA, XOCHITL ([id number]) on 04/26/2018 3:51:16 PM Referred By: LORIN Confirmed By:XOCHITL PETERS MD
== END 2018-04-26 11:45 | disposition home or self-care (01) ==
LOC: FER 09:45
DX: R42 Dizziness and giddiness (principal); M79.602 Pain in left arm; M77.9 Enthesopathy, unspecified; I10 Essential (primary) hypertension
CPT/HCPCS: 36415; 80053; 82550; 82553; 84484; 85025; 93005; 99282-25

== ENCOUNTER 2018-11-15 19:15 | Inpatient (IN) | payer SELFPAY ==
--- NOTE | 2018-11-15 19:17 | PDOC ---
History of Present Illness - General Chief Complaint: Pain Stated Complaint: ABD PAIN Time Seen by Provider: 11/15/18 19:16 History Source: Patient Exam Limitations: No Limitations - History of Present Illness Initial Comments: Pt is a 43 yo M, with PMH of kidney stones, who presents with complaints of migrating abdominal pain. Pt states the pain is crampy and began yesterday afternoon in the middle of his abdomen. PT states the pain was associated with subjective fever last night, accompanied by a few bouts of diarrhea and anorexia. Today, pt states the pain migrated towards his RLQ, and is worse with movement, relieved when he is lying still. Pt denies any headache, vision changes, syncope, chest pain, palpitations, SOB, nausea/vomiting, urinary symptoms, or leg swelling. Allergies: NKDA PCP: Micheal Social: Pt denies any cigarette, alcohol, or drug use. Pt denies any recent travel or sick contacts. Surgical: hand/tendon repair. Family: no relevant history. 11/15/18 21:23 Past History - Travel Traveled outside of the country in the last 30 days: No Close contact w/someone who was outside of country & ill: No - Past Medical History Allergies/Adverse Reactions: Allergies Allergy/AdvReac Type Severity Reaction Status Date / Time oxycodone Allergy Intermediate Itching Verified 11/15/18 19:16 tree nut Allergy Mild Itching Verified 11/15/18 19:16 APPLES/PEARS Allergy Mild Itching Uncoded 11/15/18 19:16 Home Medications: Ambulatory Orders NK [No Known Home Medication] 04/06/18 Anemia: No Asthma: No Cancer: No Cardiac Disorders: No CVA: No COPD: No CHF: No Dementia: No Diabetes: No GI Disorders: No Disorders: No HTN: Yes (recent high b/p) Hypercholesterolemia: No Liver Disease: No Seizures: No Thyroid Disease: No - Immunization History Td Vaccination: Yes Immunization Up to Date: Yes - Suicide/Smoking/Psychosocial Hx Smoking Status: No Smoking History: Never smoked Have you smoked in the past 12 months: No Number of Cigarettes Smoked Daily: 0 Hx Alcohol Use: No Drug/Substance Use Hx: No Substance Use Type: None Review of Systems - Review of Systems Able to Perform ROS?: Yes Is the patient limited Swedish proficient: No Constitutional: Yes: Fever, Loss of Appetite, Malaise. No: Chills, Diaphoresis , Night Sweats, Weakness, Weight Stable HEENTM: No: Blurred Vision, Double Vision, Nose Congestion, Throat Pain, Throat Swelling, Difficulty Swallowing Respiratory: No: Cough, Orthopnea, Shortness of Breath Cardiac (ROS): No: Chest Pain, Edema, Irregular Heart Rate, Lightheadedness, Palpitations, Syncope, Chest Tightness ABD/GI: Yes: See HPI, Diarrhea, Poor Appetite, Poor Fluid Intake, Abdominal cramping. No: Constipated, Nausea, Rectal Bleeding, Vomiting, Indigestion : No: Burning, Dysuria, Discharge, Frequency, Flank Pain, Hematuria, Pain, Urgency, Testicular Swelling, Testicular Pain Musculoskeletal: No: Back Pain, Joint Pain, Muscle Pain, Muscle Weakness Integumentary: No: Rash Neurological: No: Headache, Numbness, Weakness, Unsteady Gait, Dizziness Psychiatric: No: Sleep Pattern Change, Change in Appetite Endocrine: No: Increased Urine, Change in Weight Hematologic/Lymphatic: No: Anemia, Blood Clots, Easy Bleeding, Easy Bruising All Other Systems: Reviewed and Negative *Physical Exam - Physical Exam Comments: Vitals stable, pt afebrile. Pt in NAD, overweight body habitus. Pt alert and oriented x3. winchman/crane operator generally intact, muscular strength and sensation intact. No midline spinal tenderness, step-offs, or crepitus. Head normocephalic, atraumatic. Eyes PERRLA, EOMI. Oropharynx without erythema or exudates, no LAD b/l. No nasal congestion, hearing intact. Clear heart sounds, S1/S2, no JVD, b/l pedal edema, or heart murmur. Clear lung sounds, no respiratory distress, wheezes, crackles, or accessory muscle use. +RLQ TTP. No CVA TTP, no rebound, no guarding. Abdomen soft, non-distended, and with normoactive bowel sounds. Skin without jaundice or rash. 11/15/18 21:29 ED Treatment Course - LABORATORY CBC & Chemistry Diagram: 11/15/18 19:55 11/15/18 19:55 Medical Decision Making - Medical Decision Making Pt was seen at bedside, also will be seen by attending Dr. Garcia. Pt presenting with migrating abdominal pain to the RLQ, with anorexia and diarrhea , consistent most likely with appendicitis. Will evaluate with CT abd/pelvis IV contrast (appendicitis vs diverticulitis). No blood in BMs, not similar pain to prior kidney stones, no urinary symptoms. Provided 1 L IV NS and 1 g ofirmev for improvement of pain and hydration. Will continue to reassess pt and monitor for symptomatic improvement. 11/15/18 21:30 CBC and CMP WNL. Pt afebrile. Called CT scan to do CT abd/pelvis with IV contrast. hvac r tech on the way to [facility] ER Pt signed out to night team (Dr. Garcia). 11/15/18 21:31 *DC/Admit/Observation/Transfer Diagnosis at time of Disposition: RLQ abdominal pain - Discharge Dispostion Condition at time of disposition: Stable - Referrals Referrals: José Miguel Ashford MD [Primary Care Provider] - - Patient Instructions - Post Discharge Activity
[2018-11-15] MEDS ORDERED: ACETAMINOPHEN 1000 MG/100 ML VIAL (NON FORMULARY) IVPB ONE (19:45)
[2018-11-15] MEDS ORDERED: SODIUM CHLORIDE 1,000 ML IV STA (19:45)
--- NOTE | 2018-11-15 19:51 | PDOC ---
Attending Attestation - Resident Resident Name: Coni Zuniga - ED Attending Attestation I have performed the following: I have examined & evaluated the patient, The case was reviewed & discussed with the resident, I agree w/resident's findings & plan, Exceptions are as noted - HPI HPI: 11/15/18 19:49 This is a 43-year-old male who comes in complaining of approximately one and half days of progressive abdominal pains initially periumbilical and now right lower quadrant. Patient has some associated anorexia and diarrhea but no fevers chills nausea or vomiting. Allergies: as per nursing notes Past Medical History: Kidney stones Social history: Lives with family. No smoking. No alcohol. No illicit drugs. Surgical history: None General: No fevers or chills, no weakness, no weight loss HEENT: No change in vision. No sore throat,. No ear pain CardioVascular: no chest discomfort. No shortness of breath Respiratory:No cough, or wheezing. Gastrointestinal: no nausea, vomiting, + diarrhea no constipation, No rectal bleeding, abdominal pain as per history of present illness Genitourinary: No dysuria, hematuria, or frequency Musculoskeletal: No joint or muscle pain or swelling Neurologic: No headache, vertigo, dizziness or loss of consciousness Psychiatric: nor depression Skin: No rashes or easy bruising Endocrine: no increased thirst or abnormal weight change Allergic: no skin or latex allergy All other systems reviewed and normal - Physicial Exam PE: 11/18/18 23:38 Exam: General: Well-nourished well-developed individual, no acute distress HEENT: Throat: Normal, tonsils normal, no erythema or exudate Neck: Supple, no meningeal signs, no lymphadenopathy Eyes::Pupils equal reactive and round, extraocular motion intact Chest: Nontender to palpation Cardiac: S1-S2 normal, regular rate and rhythm, no murmurs rubs or gallops Respiratory: Lungs clear to auscultation bilateral Abdomen: Soft, nondistended, normal bowel sounds, there is moderate tenderness in the right lower quadrant there is no guarding or rebound. There is no flank or CVA tenderness Extremities: Warm, dry, no cyanosis, clubbing, or edema Skin: No rashes Neuro: Alert and oriented x3, CN II - XII intact, nonfocal exam with normal strength, normal sensation, normal reflexes, normal gait, Psych: Normal mood and affect - Medical Decision Making 11/15/18 21:30 This is a 43-year-old male who comes in complaining of abdominal pain. Patient is tender in the right lower quadrant. Patient is undergoing a workup to rule out appendicitis versus possibly diverticulitis.
[2018-11-15] MEDS ORDERED: ACETAMINOPHEN INJECTION 100 ML IVPB ONE (20:03)
[2018-11-15 20:20] LABS: BASO % 0.6 % (0-2.0); EOS % 3.2 % (0-4.5); HEMATOCRIT 49.1 % (35.4-49); HEMOGLOBIN 16.4 GM/dl (11.7-16.9); LYMPH % 26.5 % (8-40); MCH 30.7 pg (25.7-33.7); MCHC 33.5 g/dl (32.0-35.9); MEAN CELL VOLUME 91.8 fl (80-96); MEAN PLT VOLUME 9.4 fl (7.5-11.1); MONO % 6.8 % (3.8-10.2); NEUT % 62.9 % (42.8-82.8); PLATELET COUNT 260 K/MM3 (134-434); RBC 5.35 M/mm3 (4.00-5.60); RDW 12.4 % (11.9-15.9)
[2018-11-15 20:28] LABS: INR 1.07 (0.82-1.09)
[2018-11-15 20:31] LABS: ALBUMIN 4.1 g/dl (3.4-5.0); BILIRUBIN,TOTAL 0.8 mg/dl (0.2-1); CREATININE 1.1 mg/dl (0.55-1.3); TOT PROT 7.4 g/dl (6.4-8.2)
[2018-11-15 20:38] LABS: CALCIUM 8.9 mg/dl (8.5-10); POTASSIUM 3.8 mmol/L (3.5-5.1)
[2018-11-15] MEDS ORDERED: PIPERACILLIN/TAZOB 4.5 GM 4.5 GM in DEXTROSE 5%-WATER 100 ML IVPB ONE (23:04)
[2018-11-15] MEDS ORDERED: PIPERACILLIN/TAZOBACTAM 4.5 GM VIAL IVPB ONE (23:10)
[2018-11-15] MEDS ORDERED: SODIUM CHLORIDE 1,000 ML IV SCH (23:15)
--- NOTE | 2018-11-15 23:33 | PN ---
Progress Note (short form) - Note Progress Note: surgery pt being admitted for early appendicitis. No operating room till Sunday at [place]. Pt being transferred tonight to [facility]. recommend ilana harris. will plan for surgery sunday at [facility].
[2018-11-16] MEDS ORDERED: IBUPROFEN 800 MG/8 ML IJ IVPB ONE ×2 (00:09→14:05)
[2018-11-16] MEDS ORDERED: ACETAMINOPHEN 1000 MG/100 ML VIAL (NON FORMULARY) IVPB PRN ×2 (02:54→13:55)
[2018-11-16] MEDS ORDERED: DEXTROSE 5%-0.45% SALINE 1,000 ML IV SCH ×2 (03:00→13:55)
[2018-11-16 03:44] VITALS: BMI 31.3
--- NOTE | 2018-11-16 04:14 | HP ---
Admitting History and Physical - Primary Care Physician PCP: José Miguel Ashford - Admission Chief Complaint: Abdominal Pain, Diarrhea, Fever History of Present Illness: This is a 43 y/o man with a PMHx of Renal Calculi s/p Lithotripsy. Who presents to the [place] ED with periumbilical pain radiating to RLQ, with watery diarrhea 2-3 episodes, fever and diaphoresis x 1.5 days. Patient reports having dull to sharp abdominal pain increased with movement, decreased appetite. Patient denies SOB, dizziness, PETER, CP, palpitations, N/V, constipation, melena, hematochezia, dysuria History Source: Patient Limitations to Obtaining History: No Limitations - Past Medical History Renal/: Yes: Renal Calculi - Past Surgical History Additional Past Surgical History: Lithotripsy - Smoking History Smoking history: Never smoked Have you smoked in the past 12 months: No Aproximately how many cigarettes per day: 0 - Alcohol/Substance Use Hx Alcohol Use: No History of Substance Use: reports: None - Social History Usual Living Arrangement: Yes: With Child ADL: Independent Occupation: Self Employed Contractor History of Recent Travel: No Home Medications - Allergies Allergies/Adverse Reactions: Allergies Allergy/AdvReac Type Severity Reaction Status Date / Time oxycodone Allergy Intermediate Itching Verified 11/15/18 19:16 tree nut Allergy Mild Itching Verified 11/15/18 19:16 APPLES/PEARS Allergy Mild Itching Uncoded 11/15/18 19:16 - Home Medications Home Medications: Ambulatory Orders NK [No Known Home Medication] 04/06/18 Family Disease History - Family Disease History Family Disease History: Other: Father (Alive and Healthy), Mother (MS), Brother (x2 Alive and Healthy) Review of Systems - Review of Systems Constitutional: reports: Diaphoresis, Fever, Loss of Appetite Eyes: reports: No Symptoms HENT: reports: No Symptoms Neck: reports: No Symptoms Cardiovascular: reports: No Symptoms Respiratory: reports: No Symptoms Gastrointestinal: reports: Abdominal Pain, Diarrhea Genitourinary: reports: No Symptoms Breasts: reports: No Symptoms Reported Musculoskeletal: reports: No Symptoms Integumentary: reports: No Symptoms Neurological: reports: No Symptoms Endocrine: reports: No Symptoms Hematology/Lymphatic: reports: No Symptoms Psychiatric: reports: No Symptoms Pain Intensity: 2 Physical Examination Vital Signs: Vital Signs Temperature 98.3 F 08/17/19 03:36 Pulse Rate 6 L 11/16/18 03:36 Respiratory Rate 16 11/16/18 03:36 Blood Pressure 123/66 11/16/18 03:36 O2 Sat by Pulse Oximetry (%) 98 11/16/18 00:04 Constitutional: Yes: Well Nourished, No Distress, Calm Eyes: Yes: WNL, Conjunctiva Clear, EOM Intact HENT: Yes: WNL, Atraumatic, Normocephalic Neck: Yes: WNL, Supple, Trachea Midline Cardiovascular: Yes: WNL, Regular Rate and Rhythm, S1, S2 Respiratory: Yes: WNL, Regular, CTA Bilaterally Gastrointestinal: Yes: Soft, Abdomen, Obese, Hypoactive Bowel Sounds, Tenderness (RLQ), Tenderness, Rebound Renal/: Yes: WNL Breast(s): Yes: WNL Musculoskeletal: Yes: WNL Extremities: Yes: WNL Edema: No Peripheral Pulses WNL: Yes Neurological: Yes: WNL, Alert, Oriented, Cran Nerves II-XII Intact ...Motor Strength: WNL Psychiatric: Yes: WNL, Alert, Oriented Labs: CBC, BMP 11/15/18 19:55 11/15/18 19:55 Laboratory Results - last 24 hr 11/15/18 11/15/18 11/15/18 19:52 19:55 19:55 WBC 9.0 RBC 5.35 Hgb 16.4 Hct 49.1 H MCV 91.8 MCH 30.7 MCHC 33.5 RDW 12.4 Plt Count 260 D MPV 9.4 Absolute Neuts (auto) 5.6 Neutrophils % 62.9 Lymphocytes % 26.5 Monocytes % 6.8 Eosinophils % 3.2 D Basophils % 0.6 PT with INR INR Sodium 139 Potassium 3.8 Chloride 106 Carbon Dioxide 27 Anion Gap 6 L BUN 15.0 Creatinine 1.1 Est GFR (CKD-EPI)AfAm 94.13 Est GFR (CKD-EPI)NonAf 81.21 Random Glucose 95 Calcium 8.9 Total Bilirubin 0.8 AST 17 ALT 22 Alkaline Phosphatase 53 Total Protein 7.4 Albumin 4.1 Urine Color Urine Appearance Urine pH Urine Protein Urine Glucose (UA) Urine Ketones Urine Blood Urine Nitrite Urine Bilirubin Urine Urobilinogen Ur Leukocyte Esterase Blood Type O POSITIVE Antibody Screen 08/11/15/18 11/15/18 19:55 19:55 22:45 WBC RBC Hgb Hct MCV MCH MCHC RDW Plt Count MPV Absolute Neuts (auto) Neutrophils % Lymphocytes % Monocytes % Eosinophils % Basophils % PT with INR 12.0 INR 1.07 Sodium Potassium Chloride Carbon Dioxide Anion Gap BUN Creatinine Est GFR (CKD-EPI)AfAm Est GFR (CKD-EPI)NonAf Random Glucose Calcium Total Bilirubin AST ALT Alkaline Phosphatase Total Protein Albumin Urine Color Yellow Urine Appearance Clear Urine pH 6.0 Urine Protein Negative Urine Glucose (UA) Negative Urine Ketones Negative Urine Blood Negative Urine Nitrite Negative Urine Bilirubin Negative Urine Urobilinogen 0.2 Ur Leukocyte Esterase Negative Blood Type O POSITIVE Antibody Screen Negative Intake & Output 11/13/18 11/14/18 11/15/18 11/16/18 23:59 23:59 23:59 23:59 Weight 99.79 kg 99.11 kg Current Medications Generic Name Dose Route Start Last Admin Trade Name Freq PRN Reason Stop Dose Admin Acetaminophen 1,000 mg 11/16/18 02:54 Ofirmev Injection - IVPB Q6H PRN PAIN LEVEL 7 - 10 Piperacillin Sod/Tazobactam 50 mls @ 100 mls/hr 11/16/18 07:00 Sod 3.375 gm/ Dextrose IVPB Q8H-IV DOMO Protocol Piperacillin Sod/Tazobactam 50 mls @ 100 mls/hr 11/16/18 10:00 Sod 3.375 gm/ Dextrose IVPB 11/17/18 02:29 Q8H-IV DOMO Dextrose/Sodium Chloride 1,000 mls @ 100 mls/hr 11/16/18 03:00 11/16/18 03:22 D5-1/2ns - IV 100 mls/hr ASDIR DOMO Administration Imaging - Results Chest X-ray: Pending Cat Scan: Report Reviewed, Image Reviewed EKG: Image Reviewed Problem List - Problems (1) Appendicitis, acute Assessment/Plan: Terrell Score 4 CTAP- early acute appendicitis No leukocytosis, afebrile Appreciate Surgical consult- aware, OR tomorrow Blood Cultures-pending Zosyn started in ED, will continue Appreciate ID consult Monitor CBC, BMP NPO Continue IVF Ofirmev prn Code(s): K35.80 - UNSPECIFIED ACUTE APPENDICITIS (2) RLQ abdominal pain Assessment/Plan: see above Code(s): R10.31 - RIGHT LOWER QUADRANT PAIN Assessment/Plan This is a 43 y/o man with a PMHx of renal calculi s/p Lithotripsy. Admitted for Acute Appendicitis for further evaluation of their emergent condition. Plan: See Problem List FEN D51/2NS@100ml/hr Replete lytes prn NPO DVT ppx OOB SCDs Will start Heparin SQ post surgery Code Status: Full Code Dispo: Requires Inpatient Care Visit type - Emergency Visit Emergency Visit: Yes ED Registration Date: 11/15/18 Care time: The patient presented to the Emergency Department on the above date and was hospitalized for further evaluation of their emergent condition. - New Patient This patient is new to me today: Yes Date on this admission: 11/16/18 - Critical Care Critical Care patient: No
--- NOTE | 2018-11-16 08:03 | PN ---
Progress Note, Physician Chief Complaint: For planned appenectomy today History of Present Illness: This is a 43 y/o man with a PMHx of Renal Calculi s/p Lithotripsy. Who presents to the [place] ED with periumbilical pain radiating to RLQ, with watery diarrhea 2-3 episodes, fever and diaphoresis x 1.5 days. Patient reports having dull to sharp abdominal pain increased with movement, decreased appetite. Patient denies SOB, dizziness, PETER, CP, palpitations, N/V, constipation, melena, hematochezia, dysuria - Current Medication List Current Medications: Active Medications Acetaminophen (Ofirmev Injection -) 1,000 mg IVPB Q6H PRN PRN Reason: PAIN LEVEL 7 - 10 Piperacillin Sod/Tazobactam (Sod 3.375 gm/ Dextrose) 50 mls @ 100 mls/hr IVPB Q8H-IV DOMO; Protocol Piperacillin Sod/Tazobactam (Sod 3.375 gm/ Dextrose) 50 mls @ 100 mls/hr IVPB Q8H-IV DOMO Stop: 11/17/18 02:29 Dextrose/Sodium Chloride (D5-1/2ns -) 1,000 mls @ 100 mls/hr IV ASDIR DOMO Last Admin: 11/16/18 03:22 Dose: 100 mls/hr - Objective Vital Signs: Vital Signs Temperature 98.7 F 11/16/18 06:04 Pulse Rate 55 L 11/16/18 06:04 Respiratory Rate 16 11/16/18 06:04 Blood Pressure 109/47 L 11/16/18 06:04 O2 Sat by Pulse Oximetry (%) 94 L 11/16/18 04:02 Constitutional: Yes: Well Nourished, No Distress, Calm Eyes: Yes: WNL, Conjunctiva Clear, EOM Intact HENT: Yes: WNL, Atraumatic, Normocephalic Neck: Yes: WNL, Supple, Trachea Midline Cardiovascular: Yes: WNL, Regular Rate and Rhythm Respiratory: Yes: WNL, Regular, CTA Bilaterally Gastrointestinal: Yes: Normal Bowel Sounds, Soft, Tenderness (RLQ), Tenderness, Rebound ...Rectal Exam: Yes: Deferred Genitourinary: Yes: WNL Breast(s): Yes: WNL Musculoskeletal: Yes: WNL Extremities: Yes: WNL Edema: No Peripheral Pulses WNL: Yes Integumentary: Yes: WNL Neurological: Yes: WNL, Alert, Oriented ...Motor Strength: WNL Psychiatric: Yes: WNL, Alert, Oriented Labs: INR, PTT INR 1.07 (0.82-1.09) 11/15/18 19:55 Problem List - Problems (1) Prophylactic measure Assessment/Plan: FEN D51/2NS@100ml/hr Replete lytes prn NPO DVT ppx OOB SCDs Will start Heparin SQ post surgery Code Status: Full Code Dispo: Requires Inpatient Care Code(s): Z29.9 - ENCOUNTER FOR PROPHYLACTIC MEASURES, UNSPECIFIED (2) Appendicitis, acute Assessment/Plan: CTAP- early acute appendicitis remains without leukocytosis, afebrile Appreciate Surgical consult- OR today at 11:30am Blood Cultures-pending c/w Zosyn Appreciate ID consult Monitor CBC, BMP NPO Continue IVF Ofirmev prn Code(s): K35.80 - UNSPECIFIED ACUTE APPENDICITIS Visit type - Emergency Visit Emergency Visit: Yes ED Registration Date: 11/16/18 Care time: The patient presented to the Emergency Department on the above date and was hospitalized for further evaluation of their emergent condition. - New Patient This patient is new to me today: Yes Date on this admission: 11/16/18 - Critical Care Critical Care patient: No - Discharge Referral Referred to [facility] Med P.C.: No
[2018-11-16 08:11] LABS: BASO % 0.3 % (0-2.0); EOS % 4.1 % (0-4.5); HEMOGLOBIN 15.1 GM/dL (11.7-16.9); LYMPH % 27.4 % (8-40); MCH 30.9 pg (25.7-33.7); MCHC 34.4 g/dl (32.0-35.9); MEAN CELL VOLUME 89.8 fl (80-96); MEAN PLT VOLUME 8.8 fl (7.5-11.1); MONO % 10.4 % (3.8-10.2); NEUT % 57.8 % (42.8-82.8); PLATELET COUNT 214 K/MM3 (134-434); RDW 13.1 % (11.9-15.9); WHITE BLOOD COUNT 6.1 K/mm3 (4.0-10.0)
[2018-11-16 08:35] LABS: BLOOD UREA NITROGEN 12.8 mg/dL (7-18); CALCIUM 8.6 mg/dL (8.5-10.1); CREATININE 1.2 mg/dL (0.55-1.3); POTASSIUM 4.4 mmol/L (3.5-5.1)
[2018-11-16] MEDS ORDERED: DEXTROSE 5%-WATER - 50 ML IVPB ONE ×2 (08:54→16:25)
[2018-11-16] MEDS ORDERED: PIPERACILLIN/TAZOBACTAM 3.375 GM VIAL IVPB ONE ×2 (08:54→16:25)
[2018-11-16] MEDS ORDERED: PIPERACILLIN/TAZOB 3.375 GM 3.375 GM in DEXTROSE 5%-WATER - 50 ML IVPB SCH ×2 (10:00→18:00)
[2018-11-16] MEDS ORDERED: SUCCINYLCHOLINE CHLORIDE 200 MG/10 ML SYRINGE ONE (12:15)
[2018-11-16] MEDS ORDERED: fentaNYL CITRATE 250 MCG/5 ML VIAL ONE (12:15)
[2018-11-16] MEDS ORDERED: PROPOFOL 20 ML ONE (12:15)
--- NOTE | 2018-11-16 12:23 | OP ---
Operative Note - Note: Operative Date: 11/16/18 Pre-Operative Diagnosis: acute appendicitis Operation: laparoscopic appendectomy, lavage Findings: thickened inflamed appendix, non perforated Post-Operative Diagnosis: Same as Pre-op Surgeon: Evgeny Torres Associate Professor Of Surgery: Liss Dia Anesthesia: General Specimens Removed: appendix Estimated Blood Loss (mls): 10 Operative Report Dictated: Yes
[2018-11-16] MEDS ORDERED: morphine CARPU-JECT 10 MG/1 ML DISP.SYRIN IVPB PRN (12:24)
[2018-11-16] MEDS ORDERED: ACETAMINOPHEN 325 MG TABLET (FP) PO PRN (12:24)
[2018-11-16] MEDS ORDERED: ROCURONIUM BROMIDE 50 MG/5 ML SYRINGE ONE (12:31)
[2018-11-16] MEDS ORDERED: ONDANSETRON 4 MG/2 ML VIAL ONE (12:35)
[2018-11-16] MEDS ORDERED: DEXAMETHASONE SOD PHOSPHATE 4 MG/1 ML VIAL ONE (12:35)
--- NOTE | 2018-11-16 12:53 | CONS ---
DATE OF CONSULTATION: 11/16/2018 REASON FOR CONSULTATION: Acute appendicitis. This is an emergency consultation at the request of emergency room physician. BRIEF HISTORY: This is a 43-year-old male who approximately 1-1/2 to 2 days ago began developing mild right lower quadrant abdominal pain and periumbilical pain. He eventually went to the [place] [facility] where he had a CAT scan of his abdomen and pelvis which was consistent with an early appendicitis. He was admitted to the hospital, transferred to the [facility], started on Zosyn antibiotic. Request was made for surgical evaluation. He currently feels better after getting intravenous antibiotics overnight. No further diarrhea. He has had no fever while in the hospital, and his white blood cell count has remained normal. PAST MEDICAL HISTORY: Significant for kidney stones. PAST SURGICAL HISTORY: Includes a lithotripsy for those kidney stones. ALLERGIES: OXYCODONE as well as some foods. FAMILY HISTORY: Negative for malignancy in the immediate family. SOCIAL HISTORY: Negative for alcohol, negative for tobacco. REVIEW OF SYSTEMS: General: Denies fatigue or malaise. Cardiac: Denies chest pain or palpitations. Respiratory: Denies shortness of breath or wheeze. Gastrointestinal: As in HPI. Denies blood in his stool. Denies recent weight loss. Genitourinary: Denies dysuria. Musculoskeletal: Denies joint pain, joint swelling. Psychiatric: Denies anxiety, depression, or hearing voices. PHYSICAL EXAMINATION: General: This is a well-developed, well-nourished 43-year-old male in no distress. Vital Signs: He is afebrile. His vital signs are stable. HEENT: His head is normocephalic. His sclerae are anicteric. Neck: Supple. Chest: Clear. Abdomen: Soft, nondistended. There are no surgical scars. He has mild right lower quadrant tenderness without rebound or guarding. Extremities: No edema. LABORATORY: White blood cell count is normal at 6.1. His chemistries are unremarkable. His urinalysis is unremarkable and negative for blood. IMAGING: He has a CAT scan of his abdomen and pelvis which is consistent with subacute or chronic appendicitis versus early acute appendicitis or a partially treated acute appendicitis. There is also an issue with the left adrenal gland that is now thickened, and the collateral specialist requests further followup. ASSESSMENT: This is a 43-year-old male with right lower quadrant pain, right lower quadrant tenderness, and CAT scan evidence of early appendicitis. He is currently responding well to antibiotics. His physical examination findings and history as well as imaging are consistent with acute appendicitis. I agree with admission. I agree with intravenous antibiotics. At this point will move in the direction of surgery. Risks and benefits of surgery have been explained to patient in detail. These are including but not limited to the possibility of conversion to open, possibility of injury to viscera or bladder, the possibility of blood loss requiring blood transfusion, possibility of staple line dehiscence, possibility of future obstruction, possibility of future hernia, plus a multitude of medical risks including but not limited to cardiac, neurologic, pulmonary, and vascular complications, even . Patient understands these risks and is agreeable to surgery. He also understands the possibility of missed diagnosis, and he has been offered medical management and declines. He prefers the more definitive nature of surgery, the likely decreased length of stay, the ability to pathologically evaluate the appendix, and the prevention of future recurrence. As far as the abnormality of the adrenal gland, that will be managed by the medical team and not by myself. At this point plans will be made for surgery. DO IRVING REDMOND/[id number] MTDElisabeth
[2018-11-16] MEDS ORDERED: GLYCOPYRROLATE 0.2 MG/1 ML VIAL ONE (13:06)
[2018-11-16] MEDS ORDERED: NEOSTIGMINE METHYLSULFATE 0.5 MG/1 ML - 10 ML MDV ONE (13:06)
[2018-11-16] MEDS ORDERED: ONDANSETRON 4 MG/2 ML VIAL IVPUSH PRN (13:28)
[2018-11-16] MEDS ORDERED: LACTATED RINGERS SOLUTION 1,000 ML IV SCH (13:30)
[2018-11-16] MEDS ORDERED: ACETAMINOPHEN INJECTION 100 ML IVPB ONE (14:00)
[2018-11-16] MEDS: IBUPROFEN 800 MG/8 ML IJ IVPB PRN (14:20)
--- NOTE | 2018-11-16 15:13 | OP ---
DATE OF OPERATION: 11/16/2018 PREOPERATIVE DIAGNOSIS: Acute appendicitis. POSTOPERATIVE DIAGNOSIS: Acute appendicitis. PROCEDURE: Laparoscopic appendectomy. SURGEON: Evgeny Torres DO PROGRAM SUPPORT CLERK: None. ANESTHESIOLOGIST: YEISON Todd FINDINGS: Thickened, inflamed, non-perforated appendix. BLOOD LOSS: Minimal. DRAINS: None. COMPLICATIONS: None. DISPOSITION: Recovery room in stable condition. BRIEF HISTORY: This is a 43-year-old male presented to [facility] with acute appendicitis. He was started on intravenous antibiotics. He presents now for surgery. PROCEDURE: The patient was placed in the supine position. After general anesthesia was administered, the abdomen was prepped and draped in sterile fashion. A Levine catheter was inserted. Next, a vertical incision was made infraumbiliical. The scalpel was used to go through the skin and subcutaneous tissue. The fascia was then lifted with the Daron clamp and incised vertically. The peritoneum was entered bluntly. Next, a 12- mm trocar was placed under direct visualization and pneumoperitoneum was created, followed by insertion of the 5 mm 30-degree laparoscope. Two 5-mm trocars were placed, one suprapubic and one in the left lower quadrant. Attention was turned to the appendix. It was thickened, inflamed and non- perforated. A window was made at the base. The LigaSure device was used to divide the mesoappendix in multiple welds. The Ethicon Endo BEL purple load stapler was used to divide the appendix in one firing, 45-mm length. The staple line was inspected , it was intact. There was no bleeding, no breaks or signs of ischemia. The appendix was placed in the specimen bag, removed through the infraumbilical trocar site and sent to Pathology marked as specimen. At this point the pneumoperitoneum was released as the trocars were removed and no bleeding was noted. The fascia at the infraumbilical trocar site was closed with multiple interrupted 2-0 Vicryl sutures. The 3 skin incisions were closed with Biosyn and Dermabond dressing was placed. Overall the patient tolerated the procedure well with no complications. DO IRVING REDMOND/[id number] [facility]
--- NOTE | 2018-11-16 16:12 | CON.ID ---
Consult - History of Present Illness History of Present Illness: 43 y.o. male with PMH of nephrolithiasis s/p lithotripsy presented with c/o abdominal pain and diarrhea that began 2 days ago. Pt states he had mid abdominal pain initially but extended to RLQ and worsened with motion. He reports several loose BMs at the time,no n/v, but had subjective fever and diaphoresis. In the ER pt was afebrile, vitals stable. CT A/P findings indicative of appendicitis. Pt has now returned from the OR s/p lap appendectomy. Has abd pain but denies any other specific complaints. He feels well overall. - History Source History Provided By: Patient Limitations to Obtaining History: No Limitations - Past Medical History Cardio/Vascular: No: AFIB, Aneurysm, Aortic Insufficiency, Aortic Stenosis, CAD , CHF, Deep Vein Thrombosis, HTN, Hyperlipdemia, ID, Mitral Insufficiency, Mitral Stenosis, Murmur, Pulmonary Hypertension, Other Pulmonary: No: Asthma, Bronchitis, Cancer, COPD, O2 Dependent, Pneumonia, Previously Intubated, Pulmonary Embolus, Pulmonary Fibrosis, Sleep Apnea, Other Gastrointestinal: No: Ascites, Cancer, Constipation, Crohn's Disease, Diverticulitis, Diverticulosis, Esophageal Varices, Gastritis, GERD, GI Bleed, Hemorrhoids, Hiatal Hernia, Inflamatory Bowel Disease, Irritable Bowel Disease, Pancreatitis, Peptic Ulcer Disease, Ulcerative Colitis, Other Hepatobiliary: No: Cirrhosis, Cholelithiasis, Cholecystitis, Choledocholithiasis , Hepatitis A, Hepatitis B, Hepatitis C, Other Renal/: Yes: Renal Calculi Heme/Onc: No: Anemia, B12 Deficiency, Bleeding Disorder, Cancer, Current Chemotherapy, Current Radiation Therapy, Hemochromatosis, Hypercoaguable State, Myeloproliferative Synd, Sickle Cell Disease, Sickle Cell Trait, Thrombocytopenia, Other Infectious Disease: No: AIDS, C-Diff, Herpes Zoster, HIV, MRSA, STD's, Tuberculosis, VREF, Other Psych: No: Addictions, Anxiety, Bipolar, Depression, Panic, Psychosis, Schizophrenia, Other Musculoskeletal: No: Bursitis, Chronic low back pain, Hemiparesis, Hemiplegia, Osteoarthritis, Paraplegia, Other Rheumatology: No: Fibromyalgia, Gout, Lupus, Rheumatoid Arthritis, Sarcoidosis, Vasculitis, Other ENT: No: Allergic Rhinitis, Sinusitis, Other Endocrine: No: Nemesio's Disease, Ynes's Disease, Diabetes Insipidus, Diabetes Mellitus, Hyperparathyroidism, Hyperthyroidism, Hypothyroidism, Osteopenia, SIADH, Other Dermatology: No: Basal Cell, Cellulitis, Eczema, Melanoma, Psoriasis, Squamous Cell, Other - Past Surgical History Past Surgical History: No: None, AAA Repair, AICD, Amputation, Appendectomy, Arthrosocopy, AV Fistula/Graft, Bariatric Surgery, Breast Biopsy, Bypass, CABG, Carotid Endarterectomy, Cataract Removal, Cholecystectomy, Colectomy, Colonoscopy, Colostomy, Craniotomy, , Cystectomy, Hernia Repair, Hysterectomy, Ileal Conduit, Ileosotomy, Joint Replacement, Kidney Transplant, Laminectomy, Liver Transplant, Mastectomy, Nephrectomy, Oopherectomy, Orchiectomy, Permanent Pacemaker, Prostatectomy, Splenectomy, Stent, Thoracotomy , TURP, Tonsillectomy, Tubal Ligation, Upper Endoscopy, Valve Replacement, Vasectomy, Vein Stripping/Ligation - Alcohol/Substance Use Hx Alcohol Use: No History of Substance Use: reports: None - Smoking History Smoking history: Never smoked Have you smoked in the past 12 months: No Aproximately how many cigarettes per day: 0 - Social History ADL: Independent Occupation: Self Employed Contractor History of Recent Travel: No Home Medications - Allergies Allergies/Adverse Reactions: Allergies Allergy/AdvReac Type Severity Reaction Status Date / Time oxycodone Allergy Intermediate Itching Verified 11/15/18 19:16 tree nut Allergy Mild Itching Verified 11/15/18 19:16 APPLES/PEARS Allergy Mild Itching Uncoded 11/15/18 19:16 - Home Medications Home Medications: Ambulatory Orders NK [No Known Home Medication] 04/06/18 Family Disease History - Family Disease History Family Disease History: Other: Father (Alive and Healthy), Mother (MS), Brother (x2 Alive and Healthy) Review of Systems - Review of Systems Constitutional: reports: No Symptoms Eyes: reports: No Symptoms HENT: reports: No Symptoms Neck: reports: No Symptoms Cardiovascular: reports: No Symptoms Respiratory: reports: No Symptoms Gastrointestinal: reports: Abdominal Pain Genitourinary: reports: No Symptoms Musculoskeletal: reports: No Symptoms Integumentary: reports: No Symptoms Neurological: reports: No Symptoms Endocrine: reports: No Symptoms Hematology/Lymphatic: reports: No Symptoms Psychiatric: reports: No Symptoms Pain Intensity: 7 Physical Exam Vital Signs: Vital Signs Temperature 98.4 F 11/16/18 14:35 Pulse Rate 60 11/16/18 14:35 Respiratory Rate 18 11/16/18 14:35 Blood Pressure 130/64 11/16/18 14:35 O2 Sat by Pulse Oximetry (%) 97 11/16/18 14:35 Constitutional: Yes: No Distress, Calm Eyes: Yes: WNL, Conjunctiva Clear, EOM Intact HENT: Yes: WNL Neck: Yes: WNL, Supple, Trachea Midline Cardiovascular: Yes: Regular Rate and Rhythm Respiratory: Yes: CTA Bilaterally Gastrointestinal: Yes: Soft, Tenderness (lower abd/lap site) Renal/: Yes: WNL Musculoskeletal: Yes: WNL Extremities: Yes: WNL Edema: No Integumentary: Yes: WNL Wound/Incision: Yes: Clean/Dry Neurological: Yes: Alert, Oriented Psychiatric: Yes: Alert Labs: CBC, BMP 11/16/18 07:25 11/16/18 07:25 Laboratory Tests 11/15/18 11/15/18 11/15/18 19:52 19:55 19:55 WBC 9.0 RBC 5.35 Hgb 16.4 Hct 49.1 H MCV 91.8 MCH 30.7 MCHC 33.5 RDW 12.4 Plt Count 260 D MPV 9.4 Absolute Neuts (auto) 5.6 Neutrophils % 62.9 Lymphocytes % 26.5 Monocytes % 6.8 Eosinophils % 3.2 D Basophils % 0.6 Nucleated RBC % PT with INR INR Sodium 139 Potassium 3.8 Chloride 106 Carbon Dioxide 27 Anion Gap 6 L BUN 15.0 Creatinine 1.1 Est GFR (CKD-EPI)AfAm 94.13 Est GFR (CKD-EPI)NonAf 81.21 Random Glucose 95 Calcium 8.9 Total Bilirubin 0.8 AST 17 ALT 22 Alkaline Phosphatase 53 Total Protein 7.4 Albumin 4.1 Urine Color Urine Appearance Urine pH Urine Protein Urine Glucose (UA) Urine Ketones Urine Blood Urine Nitrite Urine Bilirubin Urine Urobilinogen Ur Leukocyte Esterase Blood Type O POSITIVE Antibody Screen 11/15/18 11/15/18 11/15/18 19:55 19:55 22:45 WBC RBC Hgb Hct MCV MCH MCHC RDW Plt Count MPV Absolute Neuts (auto) Neutrophils % Lymphocytes % Monocytes % Eosinophils % Basophils % Nucleated RBC % PT with INR 12.0 INR 1.07 Sodium Potassium Chloride Carbon Dioxide Anion Gap BUN Creatinine Est GFR (CKD-EPI)AfAm Est GFR (CKD-EPI)NonAf Random Glucose Calcium Total Bilirubin AST ALT Alkaline Phosphatase Total Protein Albumin Urine Color Yellow Urine Appearance Clear Urine pH 6.0 Urine Protein Negative Urine Glucose (UA) Negative Urine Ketones Negative Urine Blood Negative Urine Nitrite Negative Urine Bilirubin Negative Urine Urobilinogen 0.2 Ur Leukocyte Esterase Negative Blood Type O POSITIVE Antibody Screen Negative 11/16/18 11/16/18 07:25 07:25 WBC 6.1 RBC 4.90 Hgb 15.1 Hct 44.0 MCV 89.8 MCH 30.9 MCHC 34.4 RDW 13.1 Plt Count 214 MPV 8.8 Absolute Neuts (auto) 3.5 Neutrophils % 57.8 Lymphocytes % 27.4 Monocytes % 10.4 H Eosinophils % 4.1 Basophils % 0.3 Nucleated RBC % 0 PT with INR INR Sodium 142 Potassium 4.4 Chloride 109 H Carbon Dioxide 29 Anion Gap 4 L BUN 12.8 Creatinine 1.2 Est GFR (CKD-EPI)AfAm 84.73 Est GFR (CKD-EPI)NonAf 73.10 Random Glucose 96 Calcium 8.6 Total Bilirubin AST ALT Alkaline Phosphatase Total Protein Albumin Urine Color Urine Appearance Urine pH Urine Protein Urine Glucose (UA) Urine Ketones Urine Blood Urine Nitrite Urine Bilirubin Urine Urobilinogen Ur Leukocyte Esterase Blood Type Antibody Screen Imaging - Results Cat Scan: Report Reviewed Problem List - Problems (1) Appendicitis, acute Code(s): K35.80 - UNSPECIFIED ACUTE APPENDICITIS Assessment/Plan Acute Appendicitis without rupture s/p Lap Appendectomy POD#0 -- on Zosyn -- continue monitor as advance diet -- will d/c antibiotics if improves/stable Will follow Thank you
[2018-11-16] MEDS: PIPERACILLIN/TAZOB 3.375 GM 3.375 GM in DEXTROSE 5%-WATER - 50 ML IVPB SCH (17:58)
[2018-11-16] MEDS: morphine SULFATE 4 MG/ML VIAL IVPUSH PRN (21:08)
[2018-11-17] MEDS ORDERED: DEXTROSE 5%-WATER - 50 ML IVPB ONE ×2 (01:26→09:37)
[2018-11-17] MEDS ORDERED: PIPERACILLIN/TAZOBACTAM 3.375 GM VIAL IVPB ONE ×2 (01:26→09:37)
[2018-11-17] MEDS: PIPERACILLIN/TAZOB 3.375 GM 3.375 GM in DEXTROSE 5%-WATER - 50 ML IVPB SCH ×2 (02:19→10:44)
[2018-11-17] MEDS: morphine SULFATE 4 MG/ML VIAL IVPUSH PRN (05:18)
[2018-11-17 06:58] VITALS: TEMP 97.7
--- NOTE | 2018-11-17 07:39 | PN ---
Progress Note (short form) - Note Progress Note: surgery pt seen and examined. feels well. ambulating. voiding. tolerating diet afebrile abd- soft, minimal distension, incisions clean Plan- surgically stable for d/c. no narcotics. no abx. f/u in 2 weeks. ok to shower. no lifting [phone]
[2018-11-17 07:58] LABS: BASO % 0.4 % (0-2.0); EOS % 0.9 % (0-4.5); HEMATOCRIT 43.6 % (35.4-49); HEMOGLOBIN 14.9 GM/dL (11.7-16.9); LYMPH % 14.9 % (8-40); MCH 30.7 pg (25.7-33.7); MCHC 34.3 g/dl (32.0-35.9); MEAN CELL VOLUME 89.7 fl (80-96); MONO % 7.8 % (3.8-10.2); PLATELET COUNT 239 K/MM3 (134-434); RBC 4.86 M/mm3 (4.00-5.60); RDW 12.9 % (11.9-15.9); WHITE BLOOD COUNT 13.2 K/mm3 (4.0-10.0)
[2018-11-17 08:39] LABS: ALBUMIN 3.4 g/dl (3.4-5.0); BILIRUBIN,TOTAL 0.4 mg/dL (0.2-1); BLOOD UREA NITROGEN 10.8 mg/dL (7-18); CALCIUM 8.7 mg/dL (8.5-10.1); CREATININE 1.1 mg/dL (0.55-1.3); MAGNESIUM 2.4 mg/dL (1.8-2.4); POTASSIUM 4.3 mmol/L (3.5-5.1); TOT PROT 6.7 g/dl (6.4-8.2)
[2018-11-17] MEDS ORDERED: PANTOPRAZOLE SODIUM 40 MG VIAL IVPUSH SCH (10:00)
[2018-11-17] MEDS ORDERED: ENOXAPARIN NA (PORCINE) 40 MG/0.4 ML DISP.SYRIN SQ SCH (10:00)
[2018-11-17] MEDS: IBUPROFEN 800 MG/8 ML IJ IVPB PRN (10:49)
[2018-11-17 11:05] VITALS: BP 120/68; PULSE 76
--- NOTE | 2018-11-17 11:11 | DS ---
Physical Exam: SUBJECTIVE: Patient seen and examined admitted for acute appendicitis and had surgery . OBJECTIVE: Vital Signs Period Temp Pulse Resp BP Sys/Leyva Pulse Ox Last 24 Hr 97.5 F-98.4 F 60-94 16-20 120-147/60-88 95-100 PHYSICAL EXAM GENERAL: The patient is awake, alert, and fully oriented, in no acute distress. HEAD: Normal with no signs of trauma. EYES: PERRL, extraocular movements intact, sclera anicteric, conjunctiva clear. ENT: Ears normal, nares patent, oropharynx clear without exudates, moist mucous membranes. NECK: Trachea midline, full range of motion, supple. LUNGS: Breath sounds equal, clear to auscultation bilaterally, no wheezes, no crackles, no accessory muscle use. HEART: Regular rate and rhythm, S1, S2 without murmur, rub or gallop. ABDOMEN: he is tender defuse but no rebound tenderness EXTREMITIES: 2+ pulses, warm, well-perfused, no edema. NEUROLOGICAL: Cranial nerves II through XII grossly intact. Normal speech, gait not observed. PSYCH: Normal mood, normal affect. SKIN: Warm, dry, normal turgor, no rashes or lesions noted. LABS Laboratory Results - last 24 hr 11/17/18 11/17/18 07:27 07:27 WBC 13.2 H RBC 4.86 Hgb 14.9 Hct 43.6 MCV 89.7 MCH 30.7 MCHC 34.3 RDW 12.9 Plt Count 239 MPV 9.0 Absolute Neuts (auto) 10.0 H Neutrophils % 76.0 D Lymphocytes % 14.9 D Monocytes % 7.8 Eosinophils % 0.9 Basophils % 0.4 Nucleated RBC % 0 Sodium 140 Potassium 4.3 Chloride 107 Carbon Dioxide 30 Anion Gap 3 L BUN 10.8 Creatinine 1.1 Est GFR (CKD-EPI)AfAm 94.13 Est GFR (CKD-EPI)NonAf 81.21 Random Glucose 98 Calcium 8.7 Magnesium 2.4 Total Bilirubin 0.4 AST 19 ALT 23 Alkaline Phosphatase 57 Total Protein 6.7 Albumin 3.4 HOSPITAL COURSE: He was admitted for acute appendicitis and has surgery, seen by surgery today and was cleared to go home with out any abx and motrin for pain control. pt is going to f/u with dr roy . Date of Admission:11/16/18 Date of Discharge: 11/17/18 Minutes to complete discharge: 30 Discharge Summary Reason For Visit: ABD PAIN Current Active Problems Appendicitis, acute (Acute) Prophylactic measure (Acute) RLQ abdominal pain (Acute) Condition: Stable - Instructions Diet, Activity, Other Instructions: He can resume his regular diet and no lifting more than 10 pounds in next few days f/u with surgery dr curt roy Disposition: HOME - Home Medications Comprehensive Discharge Medication List: Ambulatory Orders Ibuprofen [Motrin -] 400 mg PO TID #21 tablet 11/17/18 This patient is new to me today: Yes Date on this admission: 11/17/18 Emergency Visit: Yes ED Registration Date: 11/16/18 Care time: The patient presented to the Emergency Department on the above date and was hospitalized for further evaluation of their emergent condition. Critical Care patient: No - Discharge Referral Referred to [facility] Med P.C.: No
--- NOTE | 2018-11-17 11:39 | EKG ---
Test Reason : Blood Pressure : / mmHG Vent. Rate : 064 BPM Atrial Rate : 064 BPM P-R Int : 186 ms QRS Dur : 094 ms QT Int : 420 ms P-R-T Axes : 052 012 018 degrees QTc Int : 433 ms NORMAL SINUS RHYTHM WITH SINUS ARRHYTHMIA NORMAL ECG WHEN COMPARED WITH ECG OF 26-APR-2018 10:47, NO SIGNIFICANT CHANGE WAS FOUND Confirmed by GAYLE TOMLINSON MD ([id number]) on 11/17/2018 11:38:43 AM Referred By: MD COYLE Confirmed By:GAYLE TOMLINSON MD
--- NOTE | 2018-11-19 16:05 | PATH ---
Surgical Pathology Report Patient Name: TOMMY ANGULO Med. Rec. #: [id number] /Age/Gender: 1975 (Age: 43) / M Account: [id number] Location: [address] [place] [address]/[facility] Taken: 11/16/2018 Received: 11/18/2018 Reported: 11/19/2018 Physicians: Evgeny Torres M.D. Specimen(s) Received APPENDIX Clinical History Acute appendicitis Final Diagnosis APPENDIX, LAPAROSCOPIC APPENDECTOMY: ACUTE APPENDICITIS. Electronically Signed Edda Moore M.D. Gross Description Received in formalin, labeled "appendix," is a 7.5 cm. in length vermiform appendix with a stapled margin of resection and abundant attached fat. The serosa is lindsey and smooth. Sectioning reveals focal fecal material within the lumen. The wall of the appendix averages 0.1 cm. in thickness. Print Controller sections are submitted in one cassette. /11/18/2018 saudi11/18/2018
== END 2018-11-17 13:35 | disposition home or self-care (01) | DRG 225 ==
LOC: FER 19:15 → J5S 11-16 02:45
PROVIDERS: ADMIT Internal Medicine; ATTEND Internal Medicine
PROC: 0DTJ4ZZ Resection of Appendix, Percutaneous Endoscopic Approach (ICD-10-PCS; principal; 2018-11-16 11:50)
DX: K35.80 Unspecified acute appendicitis (principal); R10.31 Right lower quadrant pain; R19.7 Diarrhea, unspecified; R63.0 Anorexia
CPT/HCPCS: 36415; 74177-TC; 80048; 80053; 81003; 83735; 85025; 85610; 86850; 86900; 86901; 87040; 88304-TC; 93005; 94010; 94760; 99284-25; J0131; J7030

== ENCOUNTER 2018-11-25 17:29 | Emergency (ER) | payer SELFPAY ==
[2018-11-25 18:00] VITALS: BP 157/89; PULSE 91; TEMP 97.8; BMI 30.8
--- NOTE | 2018-11-25 19:43 | PDOC ---
History of Present Illness - General Chief Complaint: Head/Neck problem Stated Complaint: NUMBNESS IN L/CHEEK/NECK Time Seen by Provider: 11/25/18 19:37 History Source: Patient - History of Present Illness Initial Comments: 11/25/18 19:37 43 year old male c/o left sided facial numbness at 4pm now symptoms has resolved. patient also c/o discomfort at the IV site. + dizziness patient reports left sided chest discomfort. Denies nausea, vomiting, abdominal pain. fever/ chills pshx: 11/15 s/p appendectomy. GERD Dr. garza ( [facility]) PCP: Dr. Fernandez ( neurology) NIH Stroke Scale - Last Known Well Date/Time & Onset Date Last Known Well: 11/25/18 Time Last Known Well: 15:00 - Initial Evaluation Level of consciousness: Alert Ask patient the month and their age: Answers both correctly Ask patient to open & close eyes; make fist and let go: Obeys both correctly Best gaze (horizontal eye movement): Normal Visual field testing: No visual field loss Facial paresis (Show teeth/raise eyebrows/close eyes tight): Normal symmetrical movement Motor Function: Left Arm: Normal Motor Function: Right Arm: Normal (extends arm 90 (or 45) degrees for 10 seconds without drift Motor Function: Left Leg: Normal (extends leg 30 degrees for 5 seconds without drift) Motor Function: Right Leg: Normal (extends leg 30 degrees for 5 seconds without drift) Limb Ataxia: No ataxia Sensory(Use pinprick test arms,legs,trunk,face/side to side): Normal Best language (Describe picture, name items, read sentences): No Aphasia Dysarthria (read several words): Normal articulation Extinction and Inattention: No abnormality - Total Score NIH Stroke Scale Score: 0 Past History - Past Medical History Allergies/Adverse Reactions: Allergies Allergy/AdvReac Type Severity Reaction Status Date / Time oxycodone Allergy Intermediate Itching Verified 11/25/18 18:00 tree nut Allergy Mild Itching Verified 11/25/18 18:00 APPLES/PEARS Allergy Mild Itching Uncoded 11/25/18 18:00 Home Medications: Ambulatory Orders Ibuprofen [Motrin -] 400 mg PO TID #21 tablet 11/17/18 Anemia: No Asthma: No Cancer: No Cardiac Disorders: No CVA: No COPD: No CHF: No Dementia: No Diabetes: No GI Disorders: No Disorders: No HTN: Yes (recent high b/p) Hypercholesterolemia: No Liver Disease: No Seizures: No Thyroid Disease: No - Surgical History Appendectomy: Yes (10/2018) - Family Disease History Family Disease History: Other: Mother (MS) - Immunization History Td Vaccination: Yes Immunization Up to Date: Yes - Suicide/Smoking/Psychosocial Hx Smoking Status: No Smoking History: Never smoked Have you smoked in the past 12 months: No Number of Cigarettes Smoked Daily: 0 Information on smoking cessation initiated: No Hx Alcohol Use: No Drug/Substance Use Hx: No Substance Use Type: None Review of Systems - Review of Systems Able to Perform ROS?: Yes Is the patient limited Citizen [place] proficient: No Constitutional: No: Symptoms Reported, See HPI, Chills, Diaphoresis, Fever, Loss of Appetite, Malaise, Night Sweats, Weakness, Weight Stable, Unintentional Wgt. Loss, Unexplained wgt Loss, Other *Physical Exam - Vital Signs Last Vital Signs Temp Pulse Resp BP Pulse Ox 97.8 F 91 H 19 157/89 100 11/25/18 17:54 11/25/18 17:54 11/25/18 17:54 11/25/18 17:54 11/25/18 17:54 - Physical Exam General Appearance: Yes: Appropriately Dressed Respiratory/Chest: positive: Lungs Clear, Normal Breath Sounds Cardiovascular: positive: Regular Rhythm, Regular Rate, Bradycardia Gastrointestinal/Abdominal: positive: Normal Bowel Sounds, Soft, Other ( surgical site clean dry and intact) Extremity: positive: Normal Capillary Refill, Normal Inspection, Normal Range of Motion, Other (right antecubital area tender to touch. no streaking noted) Integumentary: positive: Normal Color, Dry, Warm Neurologic: positive: Fully Oriented, Alert, Normal Mood/Affect Heart Score/ECG Review - History History: Slightly suspicious - Electrocardiogram EKG: Normal - Age Age: </= 45 - Risk Factors Risk Factors Heart Score: Yes Hx Hypertension Based on the list above the patient has:: 1-2 risk factors - Troponin Troponin: </= normal limit - Score Heart Score - Total: 1 - ECG Intrepretation Rhythm: Regular Rhythm Comment:: 11/25/18 23:36 NSR: 67 bpm, ED Treatment Course - LABORATORY CBC & Chemistry Diagram: 11/25/18 20:12 08/26/19 20:12 Medical Decision Making - Medical Decision Making 11/25/18 23:33 A: neck pain; numbness and tingling P: cbc cmp cardiac enzymes EKG ct head neck IVF outpatient neurology follow up 11/25/18 23:35 11/26/18 00:03 US: no dvt *DC/Admit/Observation/Transfer Diagnosis at time of Disposition: Neck pain, Numbness and tingling - Discharge Dispostion Disposition: HOME - Referrals Referrals: ON STAFF,NOT [Primary Care Provider] - Naz Fernandez MD [Staff Physician] - - Patient Instructions Printed Discharge Instructions: DI for Numbness/tingling Additional Instructions: your workup in the emergency room is negative for any stroke or bleeding. it is important that you follow-up with the neurologist as soon as possible - Post Discharge Activity Forms/Work/School Notes: Back to Work
[2018-11-25 20:37] LABS: BASO % 0.3 % (0-2.0); HEMATOCRIT 49.6 % (35.4-49); HEMOGLOBIN 16.8 GM/dL (11.7-16.9); MCH 30.5 pg (25.7-33.7); MCHC 33.9 g/dl (32.0-35.9); MEAN PLT VOLUME 9.2 fl (7.5-11.1); MONO % 9.5 % (3.8-10.2); NEUT % 65.2 % (42.8-82.8); PLATELET COUNT 270 K/MM3 (134-434); RBC 5.52 M/mm3 (4.00-5.60); RDW 13.1 % (11.9-15.9)
[2018-11-25 20:59] LABS: INR 0.92 (0.83-1.09); PROTHROMBIN TIME (PATIENT) 10.9 SEC (9.7-13.0)
[2018-11-25 21:10] LABS: ALBUMIN 4.4 g/dl (3.4-5.0); ALK PHOS 75 U/L (45-117); ANION GAP 9 MMOL/L (8-16); BILIRUBIN,TOTAL 0.4 mg/dL (0.2-1); BLOOD UREA NITROGEN 13.8 mg/dL (7-18); CALCIUM 9.4 mg/dL (8.5-10.1); CHLORIDE 104 mmol/L (98-107); CO2 28 mmol/L (21-32); CREATININE 1.3 mg/dL (0.55-1.3); GLUCOSE,RANDOM 108 mg/dL (74-106); POTASSIUM 4.3 mmol/L (3.5-5.1); SGOT/AST 19 U/L (15-37); SGPT/ALT 31 U/L (13-61); SODIUM 141 mmol/L (136-145); TOT PROT 8.2 g/dl (6.4-8.2)
[2018-11-25] MEDS ORDERED: SODIUM CHLORIDE 1,000 ML IV STA (21:30)
--- NOTE | 2018-11-26 09:28 | EKG ---
Test Reason : Blood Pressure : / mmHG Vent. Rate : 067 BPM Atrial Rate : 067 BPM P-R Int : 172 ms QRS Dur : 088 ms QT Int : 408 ms P-R-T Axes : 046 038 044 degrees QTc Int : 431 ms NORMAL SINUS RHYTHM NORMAL ECG WHEN COMPARED WITH ECG OF 15-NOV-2018 21:10, NO SIGNIFICANT CHANGE WAS FOUND Confirmed by Marquez Perez MD ([id number]) on 11/26/2018 9:27:47 AM Referred By: Confirmed By:Marquez Perez MD
== END 2018-11-26 01:02 | disposition home or self-care (01) ==
LOC: JER 17:29
PROC: 3E0337Z Introduction of Electrolytic and Water Balance Substance into Peripheral Vein, Percutaneous Approach (ICD-10-PCS; principal; 2018-11-25)
DX: R20.2 Paresthesia of skin (principal); M54.2 Cervicalgia; I10 Essential (primary) hypertension
CPT/HCPCS: 36415; 70450-TC; 70498-TC; 71046-TC-FY; 80053; 82550; 83735; 84484; 85025; 85610; 93005; 93010; 93971; 99283-25; J7030

== ENCOUNTER 2020-06-01 09:13 | Emergency (ER) | payer OTHER ==
[2020-06-01 09:20] VITALS: BP 155/93; PULSE 99; TEMP 98.2; BMI 31.5
[2020-06-01] MEDS ORDERED: IBUPROFEN 400 MG TABLET (FP) PO ONE ×2 (09:35→09:44)
== END 2020-06-01 11:15 | disposition home or self-care (01) ==
LOC: FER 09:13
DX: S99.911A Unspecified injury of right ankle, initial encounter (principal); S93.401A Sprain of unspecified ligament of right ankle, initial encounter; L30.9 Dermatitis, unspecified
CPT/HCPCS: 73610-TC-RT-FY; 73630-TC-RT-FY; 99283-25